=== PATIENT | female | born 1995 | race African-American/Black ===

== ENCOUNTER 2020-12-14 15:05 | Outpatient (CLI) | payer OTHER ==
[~2020-12-14] VITALS: Ht 160 cm; Wt 64.2 kg
[2020-12-14] MEDS ORDERED: ASPI81CH33 PO (15:26)
[2020-12-14] MEDS ORDERED: PRENTAB9 PO (15:26)
[2020-12-14 15:28] VITALS: BP 145/99
[2020-12-14] MEDS ORDERED: HOME MED LIST COMPLETE! XX SCH (15:30)
[2020-12-14 15:43] VITALS: BP 151/97
[2020-12-14 15:45] LABS: BASO % 0.1 % (0.0-1.0); EOS % 0.3 % (0.0-3.0); HEMATOCRIT 34.4 % (36.0-47.0); HEMOGLOBIN 11.7 g/dl (12.0-15.5); LYMPH # 1.7 10^3/uL (1.5-5.0); LYMPH % 25.2 % (24.0-44.0); MEAN CORPUSCULAR HEMOGLOBIN 30.6 pg (27.0-33.0); MEAN CORPUSCULAR VOLUME 90.1 fl (80.0-96.0); MONO # 0.5 10^3/uL (0.0-0.8); MONO % 7.3 % (2.0-8.0); NEUTROPHILS # 4.5 10^3/uL (1.5-8.5); NEUTROPHILS % 66.5 % (36.0-66.0); PLATELET COUNT, AUTOMATED 232 10^3/uL (150-450); RED BLOOD COUNT 3.82 10^6/uL (4.00-5.40); WHITE BLOOD COUNT 6.7 10^3/uL (4.0-10.0)
[2020-12-14 15:58] VITALS: BP 151/101
[2020-12-14 16:07] LABS: ALT/SGPT 12 U/L (12-78); BILIRUBIN,TOTAL 0.1 MG/DL (0.2-1.0); CREATININE FOR GFR 0.52 MG/DL (0.55-1.30); GLOMERULAR FILTRATION RATE > 60.0 (>60); LDH LACTATE DEHYDROGENASE 184 U/L (84-246); URIC ACID 4.7 MG/DL (2.6-6.0)
[2020-12-14 16:13] VITALS: BP 149/93
[2020-12-14 16:18] LABS: CREATININE,RANDOM URINE 26.4 MG/DL; TOTAL PROTEIN,RANDOM URINE 7.3 MG/DL (0.0-12.0)
--- NOTE | 2020-12-14 16:22 | IPNPDOC ---
Text Note Date of Service The patient was seen on 12/14/20. NOTE Chief Complaint: Ms. Mortensen is a 25 year old G[2] P[1] at 32+4 weeks gestation presenting to L&D triage for extended monitoring due to elevated blood pressure at clinic appointment. Patient presents: Alone. HPI: Denies any headaches, nausea, vomiting, RUQ pain. Denies any leaking of fluid, vaginal bleeding. Reporting good movement. Denies any contractions. Last born pre-term due to Pre-Eclampsia with severe features (elevated blood pressures per patient report) Objective: Serial BP: 145/99 P 67 151/97 P66 151/101 P63 149/93 P 66 General: Alert. Well-appearing, in no acute distress PSYCH: Well groomed. Appropriate affect, normal mood. Conversed easily. Neuro: Oriented to time, place, and person. Patellar Deep tendon reflexes Brisk Negative clonus. RESP: Lungs clear to auscultation bilaterally without wheezes, rales or rhonchi. Unlabored breathing. CV: Normal RRR, no murmur, c/w normal . No edema to bilateral upper and lower extremities. ABD: Soft, non-tender. BS normal x4 quad. MSK: legs without edema bilaterally. Normal mvmt all extremities. Steady gait. Angelica from a seated position without assistance. Obstetrical: FHR: 145 with moderate varibility, accelerations present, no decelerations. 1 contraction noted (patient did not feel) Limited Trans-Abdominal Ultrasound Performed Today: Presentation: VTX Placenta location: Anterior Movement Present Heart Rate Present Amniotic fluid: Q1 5.39 Q2 4.21 Q3 2.93 Q4 3.39 Total: 15.92cm Labs: Item Value Date Time White Blood Count 6.7 10^3/uL 12/14/20 1534 Red Blood Count 3.82 10^6/uL L 12/14/20 1534 Hemoglobin 11.7 g/dl L 12/14/20 1534 Hematocrit 34.4 % L 12/14/20 1534 Mean Corpuscular Volume 90.1 fl 12/14/20 1534 Mean Corpuscular Hemoglobin 30.6 pg 12/14/20 1534 Mean Corpuscular Hemoglobin Concent 34.0 g/dl 12/14/20 1534 Platelet Count 232 10^3/uL 12/14/20 1534 Red Cell Distribution Width 12.5 % 12/14/20 1534 Creatinine 0.52 MG/DL L 12/14/20 1534 Glomerular Filtration Rate > 60.0 12/14/20 1534 Uric Acid 4.7 MG/DL 12/14/20 1534 Total Bilirubin 0.1 MG/DL L 12/14/20 1534 Aspartate Amino Transf (AST/SGOT) 15 U/L 12/14/20 1534 Alanine Aminotransferase (ALT/SGPT) 12 U/L 12/14/20 1534 Lactate Dehydrogenase 184 U/L 12/14/20 1534 A/P 25yo at 32+4 wks gestation evaluated in L&D triage for elevated blood pressure in clinic Mild elevations in blood pressure continue. Patient asymptomatic of pre-e S/S. Benign physical exam. Normal CBC & LFT. Spot urine P:C pending (however would n ot change plan of care at this time GHTN vs Pre-E without severe features). Reactive NST, reassuring. Normal BRITTA. Plan: Consulted Dr. Centeno. To follow up in clinic tomorrow to confirm hyperte nsive disorder of as we do not yet have separation of 4 hours between elevations. Pending urine P:C. Patient to complete 24hr urine protein collection and turn in tomorrow. Has growth US scheduled 23 Dec 2020. Has APFT scheduled, next on in clinic. To follow up for COB visit with physician. Patient educated on warning s/s of pre-e and when to return tot care. Educated on routine pre-term OB return precautions and warning signs. VS,Fishbone, I+O VS, Fishbone, I+O Laboratory Tests 12/14/20 15:34 DASHA RODRÍGUEZ CNM Dec 14, 2020 16:22
[2020-12-14 16:28] VITALS: BP 140/93
== END 2020-12-14 16:50 | disposition home or self-care (01) ==
LOC: M LDO 15:05
PROVIDERS: ATTEND Advanced Practice Midwife
DX: O26.893 Other specified pregnancy related conditions, third trimester (principal); Z3A.32 32 weeks gestation of pregnancy; R03.0 Elevated blood-pressure reading, without diagnosis of hypertension; O34.211 Maternal care for low transverse scar from previous cesarean delivery
CPT/HCPCS: 36415; 59025; 76815; 82247; 82565; 82570; 83615; 84156; 84450; 84460; 84550; 85025; G0378; G0463

== ENCOUNTER → 2020-12-15 | Outpatient (REF) | payer OTHER, SELFPAY ==
[~2020-12-15] MED LIST: ASPI81CH33 PO; PRENTAB9 PO
[2020-12-15 17:15] LABS: TOTAL PROTEIN 24 HOUR URINE 221.1 MG/24HR (50-150); URINE TOTAL PROTEIN 6.7 MG/DL (0-12)
== END ==
LOC: M LAB REF 16:09
PROVIDERS: ATTEND Obstetrics & Gynecology
DX: O26.893 Other specified pregnancy related conditions, third trimester (principal); R03.0 Elevated blood-pressure reading, without diagnosis of hypertension; Z3A.32 32 weeks gestation of pregnancy

== ENCOUNTER 2020-12-22 23:30 | Inpatient (IN) | payer OTHER, SELFPAY ==
[~2020-12-22] VITALS: Ht 157.5 cm; Wt 67.0 kg
[2020-12-23] VITALS (51 sets, daily range): BP systolic 121–184; BP diastolic 63–106
[2020-12-23 00:54] LABS: HEMATOCRIT 30.7 % (36.0-47.0); HEMOGLOBIN 10.5 g/dl (12.0-15.5); MEAN CORPUSCULAR HGB CONC 34.2 g/dl (32.0-36.5); MEAN CORPUSCULAR VOLUME 90.6 fl (80.0-96.0); PLATELET COUNT, AUTOMATED 186 10^3/uL (150-450); RED BLOOD COUNT 3.39 10^6/uL (4.00-5.40); WHITE BLOOD COUNT 7.6 10^3/uL (4.0-10.0)
[2020-12-23 01:21] LABS: ALT/SGPT 15 U/L (12-78); BILIRUBIN,TOTAL 0.2 MG/DL (0.2-1.0); CREATININE FOR GFR 0.58 MG/DL (0.55-1.30); GLOMERULAR FILTRATION RATE > 60.0 (>60); LDH LACTATE DEHYDROGENASE 206 U/L (84-246); URIC ACID 6.1 MG/DL (2.6-6.0)
[2020-12-23] MEDS ORDERED: hydrALAZINE 20MG/ML 1ML VIAL (J0360 PER 20MG) IV ONE (01:50)
[2020-12-23] MEDS ORDERED: MAG Sulf (OBGYN) 20GM/500ML 20,000 MG in IV 1 EA IV SCH (01:50)
[2020-12-23] MEDS ORDERED: MAG Sulf (L&D) 4 GM/100 ML 4 GM in IV 1 EA IV ONE (01:50)
[2020-12-23] MEDS ORDERED: LABETALOL 100MG/20ML VIAL IV ONE (01:50)
[2020-12-23] MEDS ORDERED: MAGNESIUM *L&D* 4GM/100ML BAG (40MG/ML) As Ordered ONE (01:51)
[2020-12-23] MEDS ORDERED: MAGNESIUM SULFATE 4% INJ 20GM/500ML (40MG/ML) As Ordered ONE (01:51)
[2020-12-23] MEDS ORDERED: ACETAMINOPHEN 650 MG SUPP PR SCH ×2 (02:00→04:45)
[2020-12-23] MEDS ORDERED: LR 1,000 ML IV SCH ×2 (02:00→08:35)
[2020-12-23] MEDS ORDERED: LIDOCAINE 1% MDV 20ML VIAL INFIL PRN (02:00)
[2020-12-23] MEDS ORDERED: OXYTOCIN INJ 10 UNITS/ML VIAL (J2590) IV PRN (02:00)
[2020-12-23] MEDS ORDERED: BICITRA 30ML SOLN UDC PO ONE (02:00)
[2020-12-23] MEDS ORDERED: BUPIVACAINE HCL 0.25% 10ML VIAL SC SCH ×2 (02:00→04:45)
[2020-12-23] MEDS ORDERED: OXYTOCIN DRIP 30 UNITS in IV 1 EA IV PRN (02:00)
[2020-12-23] MEDS ORDERED: hydrALAZINE 20MG/ML 1ML VIAL (J0360 PER 20MG) IV SCH (02:10)
[2020-12-23] MEDS: BETAMETHASONE SOLUSPAN 6MG/ML 5ML VIAL (J0702 PER 3MG) IM SCH ×2 (02:16→13:17)
[2020-12-23] MEDS ORDERED: VANCOMYCIN HCL 1,000 MG, VIAL MATE ADAPTER 1 EACH in NS 250 ML IV SCH (02:30)
[2020-12-23] MEDS: LABETALOL 100MG/20ML VIAL IV SCH ×2 (02:39→13:15)
--- NOTE | 2020-12-23 02:53 | HPEPDOC ---
Obstetrical History & Physical General Date of Admission Item Value Date Time Urine Random Creatinine 23.4 MG/DL 12/23/20 0020 Urine Random Total Protein 48.7 MG/DL H 12/23/20 0020 Item Value Date Time Creatinine 0.58 MG/DL 12/23/20 0037 Glomerular Filtration Rate > 60.0 12/23/20 0037 Total Bilirubin 0.2 MG/DL 12/23/20 0037 Uric Acid 6.1 MG/DL H 12/23/20 0037 Aspartate Amino Transf (AST/SGOT) 17 U/L 12/23/20 0037 Alanine Aminotransferase (ALT/SGPT) 15 U/L 12/23/20 0037 Lactate Dehydrogenase 206 U/L 12/23/20 0037 Item Value Date Time White Blood Count 7.6 10^3/uL 12/23/20 0037 Hemoglobin 10.5 g/dl L 12/23/20 0037 Red Blood Count 3.39 10^6/uL L 12/23/20 0037 Hematocrit 30.7 % L 12/23/20 0037 Mean Corpuscular Volume 90.6 fl 12/23/20 0037 Mean Corpuscular Hemoglobin 31.0 pg 12/23/20 0037 Mean Corpuscular Hemoglobin Concent 34.2 g/dl 12/23/20 0037 Red Cell Distribution Width 12.7 % 12/23/20 003 Platelet Count 186 10^3/uL 12/23/20 0037 Nucleated Red Blood Cells % (auto) 0.7 % H 12/23/20 0037 Dec 23, 2020 at 01:29 Primary Care Physician: Oc Spain MD History of Present Illness 12/23/2020 24 YO EDC 02/04/2021 BY DATING US 16.0 WEEKS SEEN 12/14 20 FOR EXTENDED MONITORING WITH MID RANGE BLOOD PRESSURES ON NO MEDICATION COMES IN WITH SEVERE RANGE BLOOD PRESSURES NO HEADACHE NO RUQ PAIN NO VISUAL DISTURBANCES .PATIENT AT 33.6 WEEKS Chief Complaint: Pre-eclamsia Information Provided By: Patient Age: 24 : 2 Term: 0 Pre-term: 1 Abortions: 0 Livin Care Care: Good Care Number of Visits: 3 Dating Final EDC: Feb 04, 2021 Final EDC for Daily Update: Feb 04, 2021 1st Trimester Date: Aug 21, 2020 Weeks + Days: 16.1 Estimated Date of Confinement: Feb 04, 2021 EGA at Admission: 33.1 Antepartum Course Diagnos(e)s SEVERE RANGE BLOOD PRESSURES WITH PRE ECLAMPSIA Height (inches): 63 Pre- weight (lbs.): 119 Admission Weight (lbs.): 140 Change in Weight (lbs.): 21 Past Medical History Past Obstetrical History : Past Obstetrical History: Multigravida Date of Delivery: Jun 23, 2019 Gestation: 33.4 Type of Delivery: Ceserean section Sex of Infant: Male Weight of (grams): 3168 Complications: Yes (SEVERE PRE ECLAMPSIA AND T INCISION IN UTERUS ) Past Medical History Medical History ASTHMA MEDS ALBUTEROL Surgical History: section Family History Significant Family History: No pertinent family hx Social History Marital Status: Family situation: Spouse/partner home Psychosocial History: No pertinent psych hx * Smoker: non-smoker Alcohol: Denies Drugs: denies Abuse Violence Screening Have you been hit/kicked/slapp: No Have you been sexually assault: No Imunizations Tdap status: current Influenza Status: current Allergies Coded Allergies: Penicillins (Verified Allergy, Severe, SWELLING - DIFFICULTY BREATHING, 12/14/20) Medications Scheduled Aspirin (Aspirin) 81 Mg Tab.chew, 1 TAB PO DAILY for pain No.137/Iron/Folic Acd ( Vitamin Tablet) 1 Each Tablet, 1 TAB PO DAILY Physical Examination Physical Examination GENERAL: Alert and oriented times three. BREAST: . ABDOMEN: Gravid and non-tender to touch. FETUS: Is vertex (VTX) fetus is vertex (VTX) by Andrew. HEART RATE: Regular rate and rhythm. LUNGS: Clear to auscultation (CTA). EXTREMITIES: No edema. No clonus. Deep tendon reflexes (DTRs) + .NO CLONUS REFLEXES NORMAL Other physical findings NO ACUTE DISTRESS NORMOCEPHALIC ATRAUMATIC NECK FULL RANGE MOTION PERRLA. CHEST CLEAR TO BASES NO WHEEZE NO RHONCHI. NO CVA TENDERNESS ABDOMEN BOWEL SOUNDS NORMAL SF HEIGHT 34 CM. NO RASHES LESIONS OR PYRITES. NO COMPLAINT JOINT PAIN MYALGIA NO ARTHRALGIA. NO COMPLAINT COUGH WHEEZE SOB OR PATRICIO. NO BRUISING NO BLEEDING NON/V/D/C/F/ NO INCONTINENCE NO FREQUENCY Vital Signs/I&O Vital Signs Date Time Temp Pulse Resp B/P (MAP) Pulse Ox O2 Delivery O2 Flow Rate FiO2 12/23/20 00:05 56 182/96 (124) Laboratory Data 24H LABS Laboratory Tests 2 12/23/20 00:20: Urine Random Creatinine 23.4, Urine Random Total Protein 48.7H 12/23/20 00:37: Nucleated Red Blood Cells % (auto) 0.7H, Glomerular Filtration Rate > 60.0, Uric Acid 6.1H, Total Bilirubin 0.2, Aspartate Amino Transf (AST/SGOT) 17, Alanine Aminotransferase (ALT/SGPT) 15, Lactate Dehydrogenase 206 12/23/20 01:52: Serology Scanned Report Hepatitis B Testing PC RATIO 2.08 CBC/BMP Laboratory Tests 12/23/20 00:37 Pertinent Laboratoy Data Blood Type: O+ RBC Antibody Screen: Negative HIV: Negative Hepatitis B: Negative Rapid Plasma Reagin: Nonreactive Rubella: Immune Varicella: Nonreactive Chlamydia/Gonorrhea: Negative Group B Streptococcus: Unknown Cystic Fibrosis: Negative Anatomy Ultrasound Ultrasound Date: Oct 14, 2020 Placenta Location: Anterior Normal Anatomy: Yes Estimated Weight (grams): 602 Steroid Therapy Steroid Therapy: Yes Date #1: Dec 23, 2020 Reason PRE TERM ANTICIPATED DELIVERY Vaginal Examination Presentation: Cephalic presentation Assessment Variability: Increased Accelerations: Present Decelerations: None Tocometer Contractions: Yes Frequency: irregular Duration: less than 60 seconds Strength: palpated as mild Assessment/Plan Assessment 24 year-old (G)2 para (P)[ 1 AT 33.1 WEEKS by 16.1 -week ultrasound. Presents to Labor and Delivery (L&D) . WITH SEVERE RANGE BLOOD PRESSURES AND PRE ECLAMPSIA Plan Admit and orient. 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 Diet: NPO Group B Streptococcus (GBS) UNKNOWN Labs and intravenous (IV) per unit protocol. Counseled on ANTIBIOTICS , MGSO4, BLOOD PRESSURE MEDICATION STEROIDS FOR NEURO PROTECTION . Lactated Ringers (LR): Bolus 500 mL, then at TOTAL VOLUME 125 CC mL/hr. . C-S REPEAT CS appropriate. Labor and Delivery Counseling REVIEWED RISK OF SURGERY HEMORRHAGE INFECTION PERFORATION REOPERATION REMOTE BLOOD TRANSFUSION REMOTE HYSTERECTOMY FOR LIFE THREATENING ISSUE ADMISSION TO NICU POSSIBLE TRANSFER TO HIGHER LEVEL OF CARE Oc Spain MD Dec 23, 2020 02:47
[2020-12-23 02:56] LABS: HEMATOCRIT 35.9 % (36.0-47.0); HEMOGLOBIN 12.3 g/dl (12.0-15.5); MEAN CORPUSCULAR HEMOGLOBIN 31.1 pg (27.0-33.0); MEAN CORPUSCULAR HGB CONC 34.3 g/dl (32.0-36.5); MEAN CORPUSCULAR VOLUME 90.9 fl (80.0-96.0); PLATELET COUNT, AUTOMATED 202 10^3/uL (150-450); RED BLOOD COUNT 3.95 10^6/uL (4.00-5.40); WHITE BLOOD COUNT 9.1 10^3/uL (4.0-10.0)
[2020-12-23 03:09] LABS: APPEARANCE, URINE HAZY (CLEAR); BACTERIA, URINE AUTO 1+ (NEGATIVE); BILIRUBIN, URINE AUTO NEGATIVE (NEGATIVE); BLOOD, URINE BLOOD NEGATIVE (NEGATIVE); COLOR, URINE STRAW (YELLOW); GLUCOSE, URINE (UA) AUTO NEGATIVE (NEGATIVE); KETONE, URINE AUTO NEGATIVE (NEGATIVE); LEUKOCYTE ESTERASE, URINE AUTO NEGATIVE (NEGATIVE); NITRITE, URINE AUTO NEGATIVE (NEGATIVE); PROTEIN, URINE AUTO 2+ mg/dL (NEGATIVE); RBC, URINE AUTO 1 /HPF (0-3); SPECIFIC GRAVITY URINE AUTO 1.002 (1.002-1.035); SQUAMOUS EPITHELIAL CELL UR AU 3 /HPF (0-6); UROBILINOGEN, URINE AUTO 0.2 mg/dL (0.0-2.0); WBC, URINE AUTO 2 /HPF (0-3)
[2020-12-23] MEDS ORDERED: BUPIVACAINE HCL 0.25% 10ML VIAL SC ONE (05:00)
[2020-12-23] MEDS ORDERED: ACETAMINOPHEN 650 MG SUPP PR ONE (05:00)
[2020-12-23] MEDS ORDERED: ONDANSETRON 4MG/2ML VIAL As Ordered ONE (05:14)
[2020-12-23] MEDS ORDERED: MORPHINE PRES-FREE INJ 10 MG/10 ML VIAL (J2274) As Ordered ONE (05:16)
[2020-12-23] MEDS ORDERED: OXYTOCIN 30 UNITS IN 0.9% NaCl 500ML IV BAG (J2590) As Ordered ONE ×2 (05:19→07:57)
[2020-12-23] MEDS ORDERED: NALOXONE INJ 0.4MG/1ML VIAL (J2310 PER 1MG) IV PRN ×2 (06:19)
[2020-12-23] MEDS ORDERED: METOCLOPRAMIDE INJ 10MG/2ML VIAL (J2765 PER 1) IV PRN ×2 (06:19→08:35)
[2020-12-23] MEDS ORDERED: diphenhydrAMINE 50MG/ML VIAL (J1200) IV PRN (06:19)
[2020-12-23] MEDS ORDERED: NALBUPHINE HCL 10 MG/ML AMP (J2300) IV PRN (06:19)
[2020-12-23] MEDS ORDERED: ONDANSETRON 4MG/2ML VIAL IV PRN ×2 (06:19→08:35)
[2020-12-23] MEDS ORDERED: OXYTOCIN INJ 10 UNITS/ML VIAL (J2590) As Ordered ONE ×2 (06:50→07:29)
[2020-12-23] MEDS ORDERED: PHENYLephrine 500MCG 5ML (100MCG/ML) SYRINGE As Ordered ONE (06:52)
[2020-12-23 07:14] LABS: CORD GAS ABE A -3.6; CORD GAS HCO3 A 23.3 MEQ/L; CORD GAS O2 SAT A 36.3 %; CORD GAS PCO2 A 48.8 mmHg; CORD GAS PH A 7.297 UNITS; CORD GAS PO2 A 18.5 mmHg; CORD GAS TCO2 A 24.8 MEQ/L
[2020-12-23 07:17] LABS: CORD GAS PCO2 V 45.8 mmHg; CORD GAS PH V 7.269 UNITS; CORD GAS PO2 V 34.4 mmHg
[2020-12-23 07:18] LABS: CORD GAS ABE V -6.4; CORD GAS HCO3 V 18.7 MEQ/L; CORD GAS O2 SAT V 71.4 %; CORD GAS SBC V 21.9 MEQ/L; CORD GAS TCO2 V 21.9 MEQ/L
[2020-12-23] MEDS ORDERED: KETOROLAC 60MG 2ML VIAL As Ordered ONE (07:48)
[2020-12-23] MEDS ORDERED: dexameTHASONE 4 MG/ML 1ML VIAL (J1100 PER 1MG) As Ordered ONE (07:48)
[2020-12-23] MEDS ORDERED: METHYLERGONOVINE MALEATE 0.2 MG TAB PO PRN (08:05)
[2020-12-23] MEDS ORDERED: ACETAMINOPHEN 1000MG 100ML IV BTL (OFIRMEV) (J0131 PER 10MG) As Ordered ONE (08:05)
[2020-12-23] MEDS ORDERED: OXYTOCIN DRIP 30 UNITS in IV 1 EA IV ONE (08:05)
[2020-12-23] MEDS ORDERED: PERCOCET 5MG/325MG TAB PO PRN ×3 (08:05→08:35)
[2020-12-23] MEDS ORDERED: RHOGAM 300 MCG (1500 IU) INJ (J2790) IM SCH (08:05)
[2020-12-23] MEDS ORDERED: SIMETHICONE 80MG CHEW TAB PO PRN (08:05)
[2020-12-23] MEDS ORDERED: ACETAMINOPHEN TAB 650MG DOSE (2X325MG) PO PRN (08:05)
[2020-12-23] MEDS ORDERED: MOM 30ML SUSPENSION UDC PO PRN (08:05)
[2020-12-23] MEDS ORDERED: ANUSOL HC CREAM 30GM TOP PRN (08:05)
[2020-12-23] MEDS ORDERED: DOCUSATE SODIUM 100MG CAPSULE PO PRN (08:05)
[2020-12-23] MEDS ORDERED: MEASLES,MUMPS,RUBELLA VACCINE INJ (MMR-II) (90707) SC SCH (08:05)
[2020-12-23] MEDS: MAG Sulf (OBGYN) 20GM/500ML 20,000 MG in IV 1 EA IV SCH ×2 (08:15→18:28)
[2020-12-23] MEDS ORDERED: fentaNYL 100 MCG/2 ML INJECTION (J3010) IV PRN (08:35)
[2020-12-23] MEDS: PRENATAL VITAMINS CHEWABLE TABLET PO SCH (09:00)
[2020-12-23] MEDS: LR 1,000 ML IV SCH ×2 (10:05→13:31)
[2020-12-23] MEDS: KETOROLAC 30 MG/ML 1ML VIAL IV SCH ×2 (13:31→20:54)
[2020-12-24 00:54] LABS: ALBUMIN 1.9 GM/DL (3.2-5.2); ALT/SGPT 13 U/L (12-78); BILIRUBIN,TOTAL 0.1 MG/DL (0.2-1.0); BLOOD UREA NITROGEN 10 MG/DL (7-18); CALCIUM LEVEL 7.1 MG/DL (8.5-10.1); CARBON DIOXIDE LEVEL 25 MEQ/L (21-32); CHLORIDE LEVEL 104 MEQ/L (98-107); CREATININE FOR GFR 0.81 MG/DL (0.55-1.30); GLOMERULAR FILTRATION RATE > 60.0 (>60); GLUCOSE, FASTING 154 MG/DL (70-100); POTASSIUM SERUM 4.6 MEQ/L (3.5-5.1); SODIUM LEVEL 134 MEQ/L (136-145); TOTAL PROTEIN 4.6 GM/DL (6.4-8.2)
[2020-12-24 01:31] VITALS: BP 135/68
[2020-12-24] MEDS: KETOROLAC 30 MG/ML 1ML VIAL IV SCH (02:33)
[2020-12-24 03:59] VITALS: BP 133/76
--- NOTE | 2020-12-24 07:03 | IPNPDOC ---
Progress Note Date of Service: Dec 24, 2020 Progress Note 25 yo G2 now P2 POD#1 s/p uncomplicated RLTCS for severe pre eclampsia remote from delivery. She has just completed 24 hours of IV magnesium. No acute events overnight. Vitals - VSS, normal to mildly elevated BP, afebrile, non tachycardic General - sitting up in bed, pleasant and conversant, NAD Abdomen - Fundus firm at U-2. Incision covered with dressing. Left in place. Had significantly soaked dressing initially post operatively. No strikethrough on re enforced dressing. No tenderness to palpation. Extremities - SCDs in place. UO - excellent Labs: Pending AM CBC and CMP. Joie is doing well this morning. BP stable. Vitals wnl and UO excellent. Magnesium to be halted. Regular diet. Transfer to floor. Continue to monitor BP closely. Follow up AM CBC and CMP. in NICU. Continue routine postoperative care. All patient questions answered. Basil VS, I&O, 24H, Mario Vital Signs/I&O Vital Signs Date Time Temp Pulse Resp B/P (MAP) Pulse Ox O2 Delivery O2 Flow Rate FiO2 12/24/20 03:59 74 133/76 (95) 12/24/20 01:31 98.2 12/23/20 18:42 18 12/23/20 14:12 99 12/23/20 08:55 Room Air I&O- Last 24 Hours up to 6 AM 12/24/20 05:59 Intake Total 5044.5 ml Output Total 3915 ml Balance 1129.5 ml Laboratory Data 24H LABS Laboratory Tests 2 12/23/20 07:11: Cord Arterial Blood pH 7.297, Cord Arterial Blood PCO2 48.8, Cord Arterial Blood PO2 18.5, Cord Arterial Blood HCO3 23.3, Cord Arterial Blood Total CO2 24.8, Cord Arterial Blood Base Excess -3.6, Cord Arterial Base Excess (Standard 20.0, Cord Arterial Bld Oxygen Saturation 36.3, Cord Venous Blood pH 7.269, Cord Venous Blood PCO2 45.8, Cord Venous Blood PO2 34.4, Cord Venous Blood HCO3 18.7, Cord Venous Blood Total CO2 21.9, Cord Venous Base Excess (Actual) -6.4, Cord Venous Base Excess (Standard) 21.9, Cord Venous Blood Oxygen Saturation 71.4 12/24/20 00:07: Anion Gap 5L, Glomerular Filtration Rate > 60.0, Calcium Level 7.1L, Total Bilirubin 0.1L, Aspartate Amino Transf (AST/SGOT) 18, Alanine Aminotransferase (ALT/SGPT) 13, Alkaline Phosphatase 150H, Total Protein 4.6L, Albumin 1.9L, Albumin/Globulin Ratio 0.7L CBC/BMP Laboratory Tests 12/24/20 00:07 LESLEY RUBIO DO Dec 24, 2020 07:03
[2020-12-24 07:14] VITALS: BP 138/74
[2020-12-24] MEDS: PRENATAL VITAMINS CHEWABLE TABLET PO SCH (08:12)
[2020-12-24 08:23] LABS: HEMATOCRIT 24.1 % (36.0-47.0); MEAN CORPUSCULAR HEMOGLOBIN 30.9 pg (27.0-33.0); MEAN CORPUSCULAR HGB CONC 33.2 g/dl (32.0-36.5); MEAN CORPUSCULAR VOLUME 93.1 fl (80.0-96.0); PLATELET COUNT, AUTOMATED 180 10^3/uL (150-450); RED BLOOD COUNT 2.59 10^6/uL (4.00-5.40)
[2020-12-24] MEDS: LR 1,000 ML IV SCH ×2 (08:47→16:05)
[2020-12-24 08:51] LABS: ALBUMIN 1.9 GM/DL (3.2-5.2); ALT/SGPT 14 U/L (12-78); BLOOD UREA NITROGEN 9 MG/DL (7-18); CARBON DIOXIDE LEVEL 27 MEQ/L (21-32); CHLORIDE LEVEL 108 MEQ/L (98-107); CREATININE FOR GFR 0.61 MG/DL (0.55-1.30); GLOMERULAR FILTRATION RATE > 60.0 (>60); GLUCOSE, FASTING 125 MG/DL (70-100); POTASSIUM SERUM 4.6 MEQ/L (3.5-5.1); SODIUM LEVEL 139 MEQ/L (136-145); TOTAL PROTEIN 4.8 GM/DL (6.4-8.2)
[2020-12-24 09:01] LABS: BILIRUBIN,TOTAL < 0.1 MG/DL (0.2-1.0)
[2020-12-24 10:10] VITALS: BP 141/93
[2020-12-24 17:57] VITALS: BP 145/80
[2020-12-24] MEDS: IBUPROFEN 600MG TAB PO PRN (18:04)
[2020-12-24 21:54] VITALS: BP 135/74
[2020-12-25] MEDS: IBUPROFEN 600MG TAB PO PRN ×3 (01:59→19:25)
[2020-12-25 02:00] VITALS: BP 134/83
[2020-12-25 05:57] VITALS: BP 129/72
--- NOTE | 2020-12-25 06:26 | IPNPDOC ---
Progress Note Date of Service: Dec 25, 2020 Day#: 2 Progress Note 25 yo G2 now P2 POD#2 s/p uncomplicated RLTCS for severe pre eclampsia remote from delivery. She is s/p 24 hours of IV magnesium. No acute events overnight. Vitals - VSS, normal to mildly elevated BP, afebrile, non tachycardic General - sitting up in bed, pleasant and conversant, NAD Abdomen - Fundus firm at U-2. Incision covered with dressing. Left in place. Had significantly soaked dressing initially post operatively. No strikethrough on re enforced dressing. No tenderness to palpation. Extremities - SCDs in place. UO - excellent Labs: post OP h/h: 12/15 for Joie is doing well this morning. BP stable. Vitals wnl and UO excellent. Regular diet. Continue to monitor BP closely. Infant in NICU. Continue routine postoperative care. All patient questions answered. PLAN: 1. Discharge to home tomorrow after PPD3 BP check. 2. oxycodone, Tylenol and Motrin for pain. 3. Encourage breast feeding and ambulation. 5. Routine PP visit in 2 and 6 weeks in clinic. 6. Discussed return precautions at length. VS, I&O, 24H, Fishbone Vital Signs/I&O Vital Signs Date Time Temp Pulse Resp B/P (MAP) Pulse Ox O2 Delivery O2 Flow Rate FiO2 12/25/20 05:57 98.7 89 16 129/72 (91) 12/24/20 17:57 100 12/24/20 10:10 Room Air I&O- Last 24 Hours up to 6 AM 12/25/20 06:00 Intake Total 360 ml Output Total 2400 ml Balance -2040 ml Laboratory Data 24H LABS Laboratory Tests 2 12/24/20 07:56: Nucleated Red Blood Cells % (auto) 0.3H, Anion Gap 4L, Glomerular Filtration Rate > 60.0, Calcium Level 7.0L, Magnesium Level 5.0*H, Total Bilirubin < 0.1L, Aspartate Amino Transf (AST/SGOT) 19, Alanine Aminotransferase (ALT/SGPT) 14, Alkaline Phosphatase 148H, Total Protein 4.8L, Albumin 1.9L, Albumin/Globulin Ratio 0.7L CBC/BMP Laboratory Tests 12/24/20 07:56 VINITA GOMEZ MD Dec 25, 2020 06:26
[2020-12-25] MEDS: PRENATAL VITAMINS CHEWABLE TABLET PO SCH (07:51)
[2020-12-25 08:56] LABS: HEMATOCRIT 23.9 % (36.0-47.0); HEMOGLOBIN 7.7 g/dl (12.0-15.5); MEAN CORPUSCULAR HGB CONC 32.2 g/dl (32.0-36.5); MEAN CORPUSCULAR VOLUME 96.4 fl (80.0-96.0); PLATELET COUNT, AUTOMATED 178 10^3/uL (150-450); RED BLOOD COUNT 2.48 10^6/uL (4.00-5.40); WHITE BLOOD COUNT 12.8 10^3/uL (4.0-10.0)
[2020-12-25 10:00] VITALS: BP 140/80
[2020-12-25] MEDS: ACETAMINOPHEN 500 MG TAB PO PRN (13:33)
[2020-12-25 14:00] VITALS: BP 131/66
[2020-12-25 17:58] VITALS: BP 118/79
[2020-12-25 22:00] VITALS: BP 139/77
[2020-12-26 02:00] VITALS: BP 144/79
[2020-12-26] MEDS: ACETAMINOPHEN 500 MG TAB PO PRN (03:35)
[2020-12-26 06:00] VITALS: BP 135/86
--- NOTE | 2020-12-26 07:22 | IPNPDOC ---
Progress Note Date of Service: Dec 26, 2020 Progress Note SUBJECT: Ms. Heath Norris is a 24yo POD3 after a repeat pre- term for pre-eclampsia with severe features. She has completed 24 hours of magnesium therapy. She has been ambulating, voiding spontaneously without issue and tolerating regular diet. Breast feeding without issue. Reports lochia is less than a normal period. Patient is ambulating well. Reports some cramping with . Denies any pain. Voiding and passing flatus without diff iculty. She denied nausea, vomiting, diarrhea, chest pain, shortness of breath, fevers, chills, headache, visual changes, or urinary symptoms. OBJECTIVE: VITAL SIGNS: Within normal limits, afebrile. Alert and oriented times three. Breath sounds clear to auscultation. Heart rate: Regular rate and rhythm, no murmurs, rubs or gallops. Abdomen: Fundus firm at U-2. Soft, NTTP. Pfannensteil incision is clean dry and well approximated with rafi. Her pressure dressing and optifoam were removed today because they were saturated from prior oozing, but there is no longer oozing and the optifoam dressing was replaced Minimal lochia per patient ASSESSMENT: Ms. Heath Norris is a 24yo POD3 after a repeat pre-term for pre-eclampsia with severe features. She has completed 24 hours of magnesium therapy. She has been normotensive to mild range, not meeting criteria for medical management. She has no signs or symptoms of pre-eclampsia. PLAN: 1. Discharge to home today. 2. Tylenol and Motrin for pain. Oxycodone for breakthrough. 3. Encourage breast feeding and ambulation. 4. Desires minipill for contraception. 5. Routine PP visit in 72h, 7d, 2wk, and 6 weeks in clinic. 6. Discussed return precautions at length (routine , pre-eclampsia) and activity restrictions (pelvic rest, lifting). 7. Encouraged the varicella vaccination. VS, I&O, 24H, Fishbone Vital Signs/I&O Vital Signs Date Time Temp Pulse Resp B/P (MAP) Pulse Ox O2 Delivery O2 Flow Rate FiO2 12/26/20 06:00 97.8 70 18 135/86 (102) 98 Room Air Laboratory Data 24H LABS Laboratory Tests 2 12/25/20 08:30: Nucleated Red Blood Cells % (auto) 0.8H CBC/BMP Laboratory Tests 12/25/20 08:30 HARRY CYR DO Dec 26, 2020 07:22
--- NOTE | 2020-12-26 07:23 | OBDS ---
[facility] Obstetrical Discharge Sum. Obstetrical Discharge Summary Date: Dec 26, 2020 A/P, Post Course List any complications SUBJECT: Ms. Heath Norris is a 24yo after a repeat pre-term for pre-eclampsia with severe features. She has completed 24 hours of magnesium therapy. She has been ambulating, voiding spontaneously without issue and tolerating regular diet. Breast feeding without issue. Reports lochia is less than a normal period. Patient is ambulating well. Reports some cramping with . Denies any pain. Voiding and passing flatus without difficulty. She denied nausea, vomiting, diarrhea, chest pain, shortness of breath, fevers, chills, headache, visual changes, or urinary symptoms. She has been normotensive to mild range, not meeting criteria for medical management. She has no signs or symptoms of pre-eclampsia. PLAN: 1. Discharge to home today. 2. Tylenol and Motrin for pain. Oxycodone for breakthrough. 3. Encourage breast feeding and ambulation. 4. Desires minipill for contraception. 5. Routine PP visit in 72h, 7d, 2wk, and 6 weeks in clinic. 6. Discussed return precautions at length (routine , pre-eclampsia) and activity restrictions (pelvic rest, lifting). 7. Encouraged the varicella vaccination. HARRY CYR DO Dec 26, 2020 07:23
[2020-12-26] MEDS: IBUPROFEN 600MG TAB PO PRN (07:24)
[2020-12-26] MEDS: PRENATAL VITAMINS CHEWABLE TABLET PO SCH (07:24)
[2020-12-26 07:31] LABS: HEMATOCRIT 23.9 % (36.0-47.0); HEMOGLOBIN 7.6 g/dl (12.0-15.5); MEAN CORPUSCULAR HEMOGLOBIN 30.5 pg (27.0-33.0); MEAN CORPUSCULAR HGB CONC 31.8 g/dl (32.0-36.5); PLATELET COUNT, AUTOMATED 165 10^3/uL (150-450); RED BLOOD COUNT 2.49 10^6/uL (4.00-5.40); WHITE BLOOD COUNT 12.1 10^3/uL (4.0-10.0)
--- NOTE | 2020-12-26 18:56 | RO ---
OPERATIVE NOTE DATE OF OPERATION: 12/23/2020 This lady is a 24-year-old 2, was admitted on 12/14/2020 for extended monitoring and mid-range blood pressures. She was admitted today with history of severe ranged blood pressures and preeclampsia. She was at 33.6 weeks. We planned on trying to optimize her prior to taking her to surgery. However, because of her increasing severe blood pressures and contractions, we were unable to successfully delay the surgery by 24 hours. PREOPERATIVE DIAGNOSIS: Severe preeclampsia, severe ranged blood pressures, labor. POSTOPERATIVE DIAGNOSIS: Severe preeclampsia, severe ranged blood pressures, labor plus uterine window. PROCEDURE: ANESTHESIA: Spinal plus local anesthetic for intraperitoneal procedures. ESTIMATED BLOOD LOSS: 600 mL SURGEON: Oc Spain M.D. FERN CUTTER: Andrea Vu, for extraction, retraction and visualization without which the procedure could not be completed. DESCRIPTION OF PROCEDURE: After adequate timeout, prepped and draped in the supine position. Minor catheter in the bladder draining clear urine. Acetaminophen suppository 1300 mg per rectal, sequentials in place, antibiotics preoperatively. A Pfannenstiel incision was made through the previous layer. Immediately upon opening the skin, out popped omentum and the question at that point that there was no closure of the peritoneum or the fascia and with the large, edematous areas throughout, it was difficult to separate out the layers. We were immediately into the peritoneal cavity. A very thinned lower uterine segment at the upper end where she had a T-incision previously. We did basically an ARM and drained some clear liquor, delivered a livebirth male . Dr. Goldsmith in attendance at delivery for resuscitation. Apgars were 8 and 9 at 1 and 5 minutes respectively, weight 1840 gm, 4 lb, 1 oz. Arterial pH was 7.29, base excess -3.6, venous pH 7.26, base excess -6.4. The placenta was manually removed. There was no evidence of retained products or membranes. The uterus contracted well down under Pitocin. The lower segment which had quite a bit of oozing and bleeding because of the thinness was oversewn in two layers, imbricating the second layer. We re-evaluated the ovaries and tubes on both sides. With that done, we evaluated the incision, had to put one or two stay sutures because of oozing. We did put Mai in the area and then we removed the Mobius. We then developed the fascia and developed the peritoneum, closed the peritoneum as best we could. Then we closed the fascia with 50% of the layer on one side, 50% on the other side, meeting together in the midline. There were quite edematous muscles. We did put some approximating sutures into the muscle. We attempted to get the bleeding under control with the Bovie. This was done and then with the fascia closed, the subcutaneous tissue which was quite swollen. We had areas of bleeding. We tried with cautery. We tried with 3-0 suture. However, there was still some persistent bleeding possibly related to her preeclampsia. Again we used Mai in that area and then upon trying to close the skin with a Cirilo needle, it just increased the bleeding at the skin edge. Therefore, rafi were used throughout the entire incisional site. A Medipore dressing with reinforcing dressing was placed. The patient received misoprostol 1000 per rectum because of her extended bleeding in the preeclamptic area. With instrument and pad count correct, the patient was then sent to recovery in good condition. Baby was in the NICU. [facility]
== END 2020-12-26 09:20 | disposition home or self-care (01) | DRG 771 ==
LOC: M LDO 23:30 → M LDI 12-23 01:29 → M OBS 12-24 10:14
PROVIDERS: ADMIT Obstetrics & Gynecology; ATTEND Obstetrics & Gynecology
PROC: 10D00Z1 Extraction of Products of Conception, Low, Open Approach (ICD-10-PCS; principal; 2020-12-23 06:00)
DX: O34.211 Maternal care for low transverse scar from previous cesarean delivery (principal); O60.14X0 Preterm labor third trimester with preterm delivery third trimester, not applicable or unspecified; O14.14 Severe pre-eclampsia complicating childbirth; Z3A.33 33 weeks gestation of pregnancy; Z37.0 Single live birth

== ENCOUNTER 2020-12-27 16:36 | Emergency (ER) | payer OTHER ==
[~2020-12-27] VITALS: Ht 157.5 cm; Wt 60.4 kg
[2020-12-27] MEDS ORDERED: PERCOCET 5MG/325MG TAB PO ONE (18:10)
[2020-12-27 18:47] VITALS: BP 141/90
== END 2020-12-27 18:45 | disposition home or self-care (01) ==
LOC: M ED 16:36
DX: G89.18 Other acute postprocedural pain (principal); Z88.0 Allergy status to penicillin

== ENCOUNTER 2022-03-07 12:33 | Emergency (ER) | payer OTHER ==
[~2022-03-07] VITALS: Ht 160 cm; Wt 54.1 kg
[2022-03-07] MEDS ORDERED: ACET-683 PO (12:40)
[2022-03-07] MEDS ORDERED: bcp PO (12:40)
[2022-03-07] MEDS ORDERED: CLEO300C2 PO (15:58)
[2022-03-07 16:06] VITALS: BP 126/82
== END 2022-03-07 16:07 | disposition home or self-care (01) ==
LOC: M ED 12:33
DX: N61.0 Mastitis without abscess (principal); R11.0 Nausea; J45.909 Unspecified asthma, uncomplicated; Z88.0 Allergy status to penicillin

== ENCOUNTER 2022-08-21 17:24 | Emergency (ER) | payer OTHER ==
[~2022-08-21] VITALS: Ht 160 cm; Wt 54.2 kg
[~2022-08-21 17:24] MED LIST changes: +ACET-683 PO; +CLEO300C2 PO; +bcp PO
[2022-08-21] MEDS ORDERED: TETRACAINE 0.5% OPHTH SOLN 4ML OD ONE (17:55)
[2022-08-21] MEDS ORDERED: FLUORESCEIN OPHTH 1MG STRIP OD ONE (17:55)
[2022-08-21] MEDS ORDERED: POLYSOL OP (18:23)
[2022-08-21] MEDS ORDERED: POLYTRIM OPTH DROPS 10ML OS ONE (18:25)
[2022-08-21 18:29] VITALS: BP 109/69
== END 2022-08-21 18:39 | disposition home or self-care (01) ==
LOC: M ED 17:24
DX: H10.89 Other conjunctivitis (principal); Z88.0 Allergy status to penicillin

== ENCOUNTER → 2024-08-05 | Outpatient (REF) | payer OTHER ==
[~2024-08-05] MED LIST changes: +POLYSOL OP
[2024-08-05 14:18] LABS: APPEARANCE, URINE CLEAR (CLEAR); BACTERIA, URINE AUTO NEGATIVE (NEGATIVE); BILIRUBIN, URINE AUTO NEGATIVE (NEGATIVE); BLOOD, URINE BLOOD NEGATIVE (NEGATIVE); COLOR, URINE STRAW (YELLOW); GLUCOSE, URINE (UA) AUTO NEGATIVE (NEGATIVE); KETONE, URINE AUTO NEGATIVE (NEGATIVE); LEUKOCYTE ESTERASE, URINE AUTO NEGATIVE (NEGATIVE); NITRITE, URINE AUTO NEGATIVE (NEGATIVE); PROTEIN, URINE AUTO NEGATIVE (NEGATIVE); RBC, URINE AUTO 0 /HPF (0-3); SPECIFIC GRAVITY URINE AUTO 1.004 (1.002-1.035); SQUAMOUS EPITHELIAL CELL UR AU 3 /HPF (0-6); UROBILINOGEN, URINE AUTO 0.2 mg/dL (0.0-2.0); WBC, URINE AUTO 0 /HPF (0-3)
== END ==
LOC: M LAB REF 13:48
PROVIDERS: ATTEND Physician Assistant Medical
DX: N89.8 Other specified noninflammatory disorders of vagina (principal)